=== PATIENT | male | born 1960 | race Caucasian/White ===

== ENCOUNTER 2021-07-10 14:48 | Emergency (ER) | payer OTHER ==
[~2021-07-10] VITALS: Ht 190.5 cm; Wt 113.6 kg
[2021-07-10 18:09] LABS: BASO % 0.4 % (0.0-1.0); EOS # 0.2 10^3/uL (0.0-0.5); EOS % 1.9 % (0.0-3.0); HEMOGLOBIN 14.1 g/dl (13.5-17.5); LYMPH # 1.5 10^3/uL (1.5-5.0); LYMPH % 13.9 % (24.0-44.0); MEAN CORPUSCULAR HEMOGLOBIN 30.7 pg (27.0-33.0); MEAN CORPUSCULAR HGB CONC 33.6 g/dl (32.0-36.5); MEAN CORPUSCULAR VOLUME 91.5 fl (80.0-96.0); MONO # 0.7 10^3/uL (0.0-0.8); MONO % 6.8 % (2.0-8.0); NEUTROPHILS # 8.3 10^3/uL (1.5-8.5); NEUTROPHILS % 76.6 % (36.0-66.0); PLATELET COUNT, AUTOMATED 335 10^3/uL (150-450); RED BLOOD COUNT 4.59 10^6/uL (4.30-6.10); WHITE BLOOD COUNT 10.9 10^3/uL (4.0-10.0)
[2021-07-10] MEDS ORDERED: ONDANSETRON 4MG/2ML VIAL IV ONE (18:15)
[2021-07-10] MEDS ORDERED: KETOROLAC 30 MG/ML 1ML VIAL IV ONE (18:15)
[2021-07-10] MEDS ORDERED: ISOVUE-370 76% 100ML VIAL As Ordered ONE (18:17)
[2021-07-10 18:40] LABS: ALBUMIN 3.6 GM/DL (3.2-5.2); ALT/SGPT 31 U/L (12-78); BILIRUBIN,DIRECT 0.3 MG/DL (0.0-0.2); BILIRUBIN,TOTAL 1.1 MG/DL (0.2-1.0); CPK CREATINE PHOSPHOKINASE 110 U/L (39-308); LIPASE 114 U/L (73-393); MB/CK RELATIVE INDEX 2.73 (< OR =4); TOTAL PROTEIN 7.2 GM/DL (6.4-8.2); TROPONIN I < 0.02 NG/ML (< 0.10)
--- NOTE | 2021-07-10 19:01 | REPVR ---
PROCEDURE INFORMATION: Exam: CT Abdomen And Pelvis With Contrast Exam date and time: 07/10/2021 6:26 PM Age: 60 years old Clinical indication: Abdominal pain; Other: Llq; Additional info: Llq pain, n/v concern for diverticulitis TECHNIQUE: Imaging protocol: Computed tomography of the abdomen and pelvis with contrast. Radiation optimization: All CT scans at this facility use at least one of these dose optimization techniques: automated exposure control; mA and/or kV adjustment per patient size (includes targeted exams where dose is matched to clinical indication); or iterative reconstruction. Contrast material: ISOVUE 370; Contrast volume: 100 ml; Contrast route: INTRAVENOUS (IV); COMPARISON: No relevant prior studies available. FINDINGS: Liver: There is a diffuse decrease in hepatic parenchymal density, consistent with steatosis. Gallbladder and bile ducts: Normal. No calcified stones. No ductal dilation. Pancreas: Normal. No ductal dilation. Spleen: Normal. No splenomegaly. Adrenal glands: Normal. No mass. Kidneys and ureters: Nonobstructive calculus lower pole left kidney. Stomach and bowel: Minimally dilated small bowel loops in the mid abdomen may indicate the presence of an ileus. Appendix: No evidence of appendicitis. Intraperitoneal space: There is a segment of acute inflammation in the sigmoid colon and adjacent pericolonic fat without evidence of a drainable abscess or free air, consistent with acute diverticulitis. Vasculature: The aortoiliac vessels demonstrate mild atherosclerotic calcification. Lymph nodes: Unremarkable. No enlarged lymph nodes. Urinary bladder: Unremarkable as visualized. Reproductive: Status post prostatectomy. Bones/joints: Marked disc space narrowing L5-S1 with bilateral facet joint arthropathy and posterior calcified intervertebral osteophytes. Possible impingement on the S1 nerve roots. Soft tissues: Unremarkable. IMPRESSION: 1. There is a diffuse decrease in hepatic parenchymal density, consistent with steatosis. 2. There is a segment of acute inflammation in the sigmoid colon and adjacent pericolonic fat without evidence of a drainable abscess or free air, consistent with acute diverticulitis. 3. Minimally dilated small bowel loops in the mid abdomen may indicate the presence of an ileus. 4. Status post prostatectomy. Electronically signed by: Boris Duran On 07/10/2021 19:00:29 PM
[2021-07-10] MEDS ORDERED: metroNIDAZOLE (FLAGYL) 500MG TABLET PO ONE (19:10)
[2021-07-10] MEDS ORDERED: CIPROFLOXACIN 500MG TABLET PO ONE (19:10)
--- NOTE | 2021-07-10 20:07 | ECGEPIP ---
[facility] - ED Test Date: 2021-07-10 Pat Name: ORVILLE SWANSON Department: Room: - Gender: Male Quality Control Director: FATOU : 1960 Requested By: CAITLYN Gurrola PA-C Order Number: [id number] Reading MD: Judi Borja Measurements Intervals [place] Rate: 77 P: 59 AK: 206 QRS: -20 QRSD: 90 T: 66 QT: 386 QTc: 436 Interpretive Statements Sinus rhythm with occasional premature ventricular complexes Nonspecific T wave abnormality No prior Electronically Signed on 07-10-2021 20:06:59 EDT by Judi Borja
[2021-07-10] MEDS ORDERED: CIPR-249 PO (20:28)
[2021-07-10] MEDS ORDERED: FLAG500T PO (20:28)
[2021-07-10 20:52] VITALS: BP 148/71
== END 2021-07-10 20:30 | disposition home or self-care (01) ==
LOC: M ED 14:48
DX: K57.32 Diverticulitis of large intestine without perforation or abscess without bleeding (principal); I25.10 Atherosclerotic heart disease of native coronary artery without angina pectoris; E11.9 Type 2 diabetes mellitus without complications; I10 Essential (primary) hypertension; Z87.442 Personal history of urinary calculi; Z85.46 Personal history of malignant neoplasm of prostate; Z95.1 Presence of aortocoronary bypass graft
CPT/HCPCS: 74177; 80047; 80076; 81001; 82550; 82553; 83690; 84484; 85025; 93005; 96374; 96375; 99284; J1885; J2405; Q9967